=== PATIENT | female | born 1995 | race Caucasian/White ===

== ENCOUNTER 2025-03-28 18:03 | Emergency (ER) | payer OTHER, SELFPAY ==
[2025-03-28 18:04] VITALS: BP 145/90; PULSE 88; RESP 16; TEMP 36.8; O2SAT 96; BMI 29.2
--- NOTE | 2025-03-28 18:50 | EX.ED.GENINJ ---
HPI History of Present Illness Chief Complaint: Bite Informant: patient and spouse/S.O. Narrative Narrative: Patient is a 29-year-old female presenting with facial and hand lacerations following a dog bite. - Patient was bitten by a dog while petting it during a neighborhood interaction. - Dog is reportedly up to date on vaccinations, not ill lately. - Sustained lacerations to the face and hand from the dog's teeth. - Reports more pain in the hand laceration compared to the facial laceration. - Denies any injury to the eyes. - Uncertain of last tetanus vaccination; reports all childhood vaccinations are up to date. - Denies allergies. Tetanus Immunization: >10 years PFSH PFSH Medical History no medical history no medical history Home Medications ?Medication ?Instructions ?Recorded ?Last Taken ?Type amoxicillin 875 mg-potassium 875 mg PO Q12H #10 TABLETS 03/28/25 Unknown Rx clavulanate 125 mg tablet Allergy/AdvReac Type Severity Reaction Status Date / Time No Known Allergies Allergy Verified 03/28/25 18:04 Social History Smoking Status: Never smoker ROS ROS ED Constitutional Constitutional ED: Denies chills or fever(s) Eyes Eyes: Denies change in vision ENT ENT ED: Reports as per HPI and nose pain; Denies neck pain Gastrointestinal Gastrointestinal: Denies nausea or vomiting Musculoskeletal Musculoskeletal: Reports as per HPI and extremity pain; Denies back pain or neck pain Integumentary Reports Abrasions and laceration; Denies abscess Neurologic Neurologic: Denies headache(s), paresthesias or weakness EXAM Physical Exam Const Vital Signs: 03/28/25 18:04 Temperature 98.3 F Temperature Source Oral Pulse Rate 88 Respiratory Rate 16 Blood Pressure 145/90 H Blood Pressure Mean 108 Pulse Ox 96 Oxygen Delivery Method Room Air Positive well nourished and well developed General Appearance ED: well developed and NAD HEENT HEENT Narrative: Curvilinear partial-thickness laceration/abrasion to the nose. The skin edges do not distract and the dermis is intact. There is no active bleeding or signs of infection or foreign body. There is no swelling nasal bones nontender there is no evidence of epistaxis or injury elsewhere to the face. Eyes PERRL and EOMs intact bilaterally General Eye ED: Yes other Other Details: Atraumatic Neck full ROM General: Negative for tenderness Resp normal respiratory effort Extremity normal to inspection and full ROM Extremity Narrative: There is a soft tissue linear avulsion/abrasion to the volar aspect of the right wrist there is no laceration the dermis is intact full range of motion no bony tenderness, no other signs of extremity injury. Neuro oriented x3, CN's II-XII intact bilaterally, moves all extremities, no focal motor deficits and gait normal Psych mental status grossly normal and thought process normal Skin Skin Narrative: Injury to the nose and the right wrist see above MDM MDM MDM Narrative Medical decision making narrative: Patient has two different areas of involvement from this dog bite. The first is across her nose, with no signs of focal swelling, deformity, epistaxis, or fracture, and no bony tenderness. The second is on the volar right wrist. The skin is intact on both sites, and these are partial-thickness injuries with no indication for suturing. The patient?s last tetanus shot was more than 10 years ago, so we will update that. Since she has a facial dog bite, prophylactic antibiotics are indicated. She has no allergies, so we will prescribe Augmentin. We will cleanse and dress the wounds with bacitracin prior to discharge. With regards to rabies, immunization and immunoglobulin not indicated for this injury advised the patient to have her family monitor their dog for signs and symptoms of rabies in the next 10 days. Discharge Plan Triage Chief Complaint: Bite ED Provider: Albaro Harding Dx/Rx/DC Orders Clinical Impression: Dog bite of face, Dog bite of right wrist, Immunization, tetanus-diphtheria Instructions: ED Dog Bite Prescriptions: New amoxicillin-pot clavulanate 875-125 mg tablet 875 mg PO Q12H Qty: 10 0RF Referrals: Azael Mejia MD [Med Staff - Active Staff, Plastic Surgery] Referral Note: if you have any concerns about facial injury cosmetics/healing Print Language: [place]ian Disposition Disposition: Home, Self Care
[2025-03-28 19:17] VITALS: BP 122/60; PULSE 89; RESP 16; TEMP 36.9; O2SAT 98
== END 2025-03-28 19:18 | disposition home or self-care (01) ==
PROVIDERS: Emergency Provider Emergency Medicine; PCP Family Medicine; Visit Provider Emergency Medicine
DX: S01.85XA Open bite of other part of head, initial encounter (principal); W54.0XXA Bitten by dog, initial encounter; Y92.89 Other specified places as the place of occurrence of the external cause; Z23 Encounter for immunization; S61.551A Open bite of right wrist, initial encounter
CPT/HCPCS: 90471; 90715; 99282